=== PATIENT | female | born 1960 | race Caucasian/White ===

== ENCOUNTER 2019-09-06 08:13 | Day surgery (SDC) | payer OTHER, SELFPAY ==
[~2019-09-06] VITALS: Ht 165.1 cm; Wt 85.7 kg
[2019-09-06] MEDS ORDERED: MIDAZOLAM 2 MG/2 ML VIAL ONE (08:31)
[2019-09-06] MEDS ORDERED: fentaNYL 0.05 MG/ML VIAL ONE (08:31)
[2019-09-06] MEDS ORDERED: diphenhydrAMINE 50 MG/ML VIAL ONE ×2 (08:31→08:32)
[2019-09-06] MEDS ORDERED: MIDAZOLAM 2 MG/2 ML VIAL IVP ONE (10:25)
[2019-09-06] MEDS ORDERED: fentaNYL 0.05 MG/ML VIAL IVP ONE (10:25)
== END 2019-09-06 10:55 | disposition home or self-care (01) ==
LOC: MMU 08:13 → MDS 08:13
PROVIDERS: ATTEND Internal Medicine
DX: K30 Functional dyspepsia (principal); Z11.59 Encounter for screening for other viral diseases; K64.8 Other hemorrhoids; K31.7 Polyp of stomach and duodenum; I10 Essential (primary) hypertension; I25.10 Atherosclerotic heart disease of native coronary artery without angina pectoris; E78.5 Hyperlipidemia, unspecified; E11.9 Type 2 diabetes mellitus without complications; E11.40 Type 2 diabetes mellitus with diabetic neuropathy, unspecified; Z90.710 Acquired absence of both cervix and uterus; Z98.890 Other specified postprocedural states; Z80.0 Family history of malignant neoplasm of digestive organs
CPT/HCPCS: 43239; 45380; J2250; J3010; U0003; J1200